=== PATIENT | female | born 1960 | race Caucasian/White ===

== ENCOUNTER 2023-06-08 12:38 | Outpatient (CLI) | payer MEDICARE, SELFPAY ==
--- NOTE | ~2023-06-08 | XR_ITS ---
Right wrist Technique: PA, oblique, lateral, and ulnar deviation views were obtained. Clinical History: Pain Findings: No acute fracture seen. Questionable mild widening of the C1. There is advanced degenerativ e change of the radial scaphoid articulation, prominent subchondral geode in the distal radius. There is moderate degenerative change of the STT articulations. Suspected DISI on lateral view. There is s evere degenerative change of the first CMC joint. Soft tissues are unremarkable. 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 Additional moderate to advanced degenerative changes of the STT articulations and first CMC joint. Reviewed, dictated and finalized at location [facility] 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 Additional moderate to advanced degenerative changes of the STT articulations and first CMC joint.
--- NOTE | ~2023-06-08 | XR_ITS ---
Left wrist Technique: PA, oblique, lateral, and ulnar deviation views were obtained. Clinical History: Pain Findings: No acute fracture or dislocation is seen. Osseous alignment is anatomic there is severe deg enerative change of the first CMC joint. Soft tissues are unremarkable. 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 Reviewed, dictated and finalized at location . 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
== END 2023-06-08 12:39 | disposition home or self-care (01) ==
PROVIDERS: PCP Plastic Surgery; Visit Provider Plastic Surgery
DX: M19.031 Primary osteoarthritis, right wrist (principal); M19.032 Primary osteoarthritis, left wrist
CPT/HCPCS: 73110

== ENCOUNTER 2023-08-05 06:20 | Day surgery (SDC) | payer MEDICARE, SELFPAY ==
[2023-08-05 06:48] VITALS: BP 136/83; PULSE 70; RESP 20; TEMP 35.9; O2SAT 97
--- NOTE | 2023-08-05 07:21 | WPDHPUPDATE1 ---
History and Physical Update Update Date/Time: 08/05/23 07:21 History and Physical has been reviewed, including an updated exam of the patient. There are NO changes in the patient's condition. Risks, benefits, and alternatives have been discussed and questions answered. Patient agrees to proceed with procedure.
[2023-08-05] MEDS: LACTATED RINGERS 1,000 ML 30 ML IV CONT (07:31)
--- NOTE | 2023-08-05 07:44 | P.PNAN_ITS ---
Anes - Initial Pre Proc Eval Procedure: Operation Date: 08/05/23 08:00 Proposed Procedures p Left Open Carpal Tunnel Release - Talha Real MD s Left Ulnar Neuroplasty at Elbow - Talha Real MD Date/Time: 08/05/23 07:44 Surgeon: Talha Real MD Pre Op Diagnosis: Left Carpal and Cubital Tunnel Syndrome Patient Data Age: 63 Gender: F Height: 1.65 m Weight: 76.7 kg Last Vital Signs Temp 35.9 C L 08/05/23 06:48 Pulse 70 08/05/23 06:48 Resp 20 08/05/23 06:48 BP 136/83 08/05/23 06:48 Pulse Ox 97 08/05/23 06:48 O2 Del Method Room Air 08/05/23 06:48 Allergies Allergy/AdvReac Type Severity Reaction Status Date / Time No Known Allergies Allergy Verified 08/05/23 06:45 Home Medications Medication Instructions Recorded Confirmed Type hydrocodone 5 mg-acetaminophen 325 1 tablet PO Q6H PRN pain #6 tabs 07/07/23 08/05/23 Rx mg tablet levothyroxine 125 mcg tablet 125 mcg PO DAILY 07/24/23 08/05/23 History multivitamin 1 tablet PO DAILY 07/24/23 08/05/23 History Patient hx anesthesia problems: none Family hx anesthesia problems: none Results Review: All pre-operative results and documents have been reviewed as part of the pre- operative evaluation. [facility] Past Medical History Medical History (Updated 08/05/23 @ 07:44 by Laureano Mcgowan MD) Hypothyroidism Social History Social History Smoking packs per day: 0.5 Smoking cigarettes per day: 10.0 Smoking status: Current every day smoker Alcohol intake: current Alcohol use details: 7 Substance use type: does not use Living arrangements: with family Anes - Eval Final PreProcedure Day of Procedure 08/05/23 07:44 Patient weight: overweight Heart: regular rate and rhythm Lungs: clear to auscultation Airway: Mallampati scale class II Neurological: alert and oriented Last oral intake: >/= 8 hours ASA classification: III Emergent: no Anesthetic plan: proceed Anesthesia type and monitoring: general GIVS and standard monitoring Results Review: All pre-operative results and documents have been reviewed as part of the pre- operative evaluation. Informed Consent: The patient's anesthetic plan and its attendant risks and benefits were discussed with the patient/family/POA. Questions were solicited and answers provided to the satisfaction of the patient/family/POA.
[2023-08-05] MEDS: LIDO 1%/EPINEPHRINE 1:100,000 20 ML VIAL 15 ML INFILTRATE (09:35)
[2023-08-05 09:56] VITALS: BP 111/67; PULSE 88; RESP 14; TEMP 37.2; O2SAT 93
[2023-08-05 10:06] VITALS: BP 124/70; PULSE 79; RESP 14; O2SAT 92
[2023-08-05 10:16] VITALS: BP 129/85; PULSE 78; RESP 14; O2SAT 92
--- NOTE | 2023-08-05 10:17 | P.OP_ITS ---
Procedure Note - Detailed Date of Procedure 08/05/23 Pre-op Diagnosis Left Carpal and Cubital Tunnel Syndrome Post-op Diagnosis Same Procedure Performed Left open carpal tunnel release and left ulnar neuroplasty at the elbow Surgeon Talha Real MD [employer] [facility] [place], [place] Description of Procedure The left carpal tunnel and left cubital tunnel sites were marked on the patient in the holding area. She consented to this questions were answered. She was taken to the operating room where she was placed supine on the operating table. She was given IV sedation. The left upper extremity was prepped and draped in usual fashion. A tourniquet was applied to the arm. The site was reexamined for surgical access and marked and locally infiltrated with 1% lidocaine with epinephrine. The extremity was exsanguinated and the tourniquet inflated to 250 mmHg. The incision was made in the palm 1st. Blunt dissection through the subcutaneous fascia revealed the palmar aponeurosis. This and the transverse retinaculum were incised with a 15. Blade opening the canal. Under 3 point retraction the canal was opened distally and proximally for complete release. There was no unusual anatomy noted. The skin was closed with interrupted 5 0 nylon suture. Attention was turned to the elbow. This was flexed and supported on folded towels and the incision made as marked. Blunt dissection through the subcutaneous tissue revealed the nerve entering from the superior aspect under the triceps muscle. It was freed proximally and then the fascia was divided distally past Rick ligament. Distally there was almost no compression. A finger could easily be slipped alongside the nerve in both directions. The nerve did not subluxate. The which electrocoagulated. The tourniquet was released. The site was examined for additional bleeding and no significant bleeding was found. The wound was closed with intradermal 3-0 interrupted sutures and the running intradermal 3-0 Monocryl to close the skin. The usual dressing with Xeroform gauze and Lee wrap was applied. Patient was discharged from the operating room stable condition she is discharged home with instructions in wound care and follow-up and a prescription for hydrocodone 5/325 number 6. Estimated Blood Loss 3 Drains No Packing No Pathology None sent Complications No immediate complications Condition Stable Disposition Same day
[2023-08-05 10:26] VITALS: BP 129/68; PULSE 70; RESP 14; O2SAT 96
[2023-08-05 10:36] VITALS: BP 136/83; PULSE 71; RESP 16; O2SAT 95
== END 2023-08-05 10:51 | disposition home or self-care (01) ==
PROVIDERS: PCP Nurse Practitioner; Visit Provider Plastic Surgery
PROC: (CPT 64721; principal; 2023-08-05 08:00)
PROC: (CPT 64718; 2023-08-05 08:00)
DX: G56.22 Lesion of ulnar nerve, left upper limb (principal); G56.02 Carpal tunnel syndrome, left upper limb
CPT/HCPCS: 64718; 64721